=== PATIENT | female | born 1970 | race African-American/Black ===

== ENCOUNTER 2017-08-06 10:53 | Emergency (ER) | payer SELFPAY ==
[~2017-08-06] VITALS: Ht 160 cm; Wt 75.0 kg
[~2017-08-06 10:53] MED LIST: IBUP600T26 PO
[2017-08-06 10:56] VITALS: BP 127/77; PULSE 75; RESP 16; TEMP 97.7; O2SAT 98
--- NOTE | 2017-08-06 11:38 | PD ---
HPI Chief Complaint: Edema Time Seen by Provider: 11:26 Travel History International Travel<30 days: No Contact w/Intl Traveler<30days: No Traveled to known affect area: No History of Present Illness HPI 46-year-old female presents to the emergency department for evaluation of bilateral intermittent lower extremity edema that has been ongoing for over 6 months. 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 She has been on her feet for long periods time, she will notice some swelling in her ankles. She has not yet followed up with her primary care physician for this. She denies any associated pain. No fevers or chills. No chest pain or shortness of breath. No abdominal pain. Nausea, vomiting, diarrhea. Patient states the swelling goes down when she is off of work. Patient reports no chronic medical problems and takes no prescribed medications. She also complains of some intermittent left ear pain for approximately 3 weeks. No drainage. Patient denies any other complaints at this time. PFSH Past Medical History Diminished Hearing: No : 3 Para: 3 Social History Alcohol Use: No Tobacco Use: No Substance Use: No Allergies-Medications (Allergen,Severity, Reaction): Coded Allergies: No Known Allergies (Unverified , 09/13/14) Reported Meds & Prescriptions Reported Meds & Active Scripts Active Ibuprofen 600 Mg Tab 600 Mg PO Q8H PRN Review of Systems Except as stated in HPI: all other systems reviewed are Neg Physical Exam Narrative GENERAL: Well-nourished, well-developed female patient, ambulatory. Afebrile. SKIN: Focused skin assessment warm/dry. HEAD: Normocephalic. Atraumatic. ENT: Mucosa pink and moist. No erythema or exudates. No uvular edema. No uvular , palatal, or tonsillar deviation. Airway patent. Nasal turbinates appear normal without nasal blood, purulent drainage or septal hematoma. Bilateral tympanic membranes are clear without erythema or perforation. EYES: No scleral icterus. No injection or drainage. NECK: Supple, trachea midline. No JVD or lymphadenopathy. CARDIOVASCULAR: Regular rate and rhythm without murmurs, gallops, or rubs. RESPIRATORY: Breath sounds equal bilaterally. No accessory muscle use. Lungs sounds are clear to auscultation. GASTROINTESTINAL: Abdomen soft, non-tender, nondistended. MUSCULOSKELETAL: No cyanosis, or edema. BACK: Nontender without obvious deformity. No CVA tenderness. Data Data Last Documented VS Vital Signs Date Time Temp Pulse Resp B/P (MAP) Pulse Ox O2 Delivery O2 Flow Rate FiO2 08/06/17 11:07 16 98 Room Air 08/06/17 10:56 97.7 75 127/77 (94) [facility] Medical Decision Making Medical Screen Exam Complete: Yes Emergency Medical Condition: Yes Medical Record Reviewed: Yes Differential Diagnosis idiopathic edema versus otitis media versus otitis externa versus eustachian tube dysfunction Narrative Course This is a 46-year-old female who presents to the emergency department for evaluation of intermittent bilateral lower extremity edema that occurs when she is on her feet for long periods time at work. Patient also complains of left ear pain for approximately 3 weeks. Physical exam is reassuring. Wells criteria for DVT shows low probability for DVT. There is no edema at this time. There is no evidence of ear infection. I instructed her on the need to follow up with her primary care physician. She is return here for any acute worsening of symptoms. I discussed the case with my attending physician, Dr. Kaminski, who agrees with plan and disposition. The patient was discharged in stable condition with instructions, including return instructions and follow up instructions. Diagnosis Primary Impression: Bilateral lower extremity edema Additional Impression: Ear pain, left Referrals: Primary Care Physician call for appointment Patient Instructions: General Instructions, Leg Edema (ED) Additional Instructions: Wear compression stockings. Elevate your legs. Follow-up with your primary care physician. Return to the emergency department for any acute worsening of symptoms. Med/Other Pt SpecificInfo: No Change to Meds Disposition: 01 DISCHARGE HOME Condition: Stable Sandra Hernandez Aug 06, 2017 11:38
== END 2017-08-06 12:14 | disposition home or self-care (01) ==
LOC: NEPC 10:53
DX: R60.0 Localized edema (principal); H92.02 Otalgia, left ear
CPT/HCPCS: 99282